=== PATIENT | male | born 1950 | race Caucasian/White ===

== ENCOUNTER 2021-02-06 12:20 | Inpatient (IN) ==
[2021-02-06 12:58] LABS: Basophils # 0.1 10*3/uL (0.0-0.2); Eosinophils # 0.2 10*3/uL (0.0-0.87); Eosinophils % 1.1 % (0.00-10.9); Hematocrit 44.9 VOL% (42.0-52.0); Hemoglobin 14.3 GM/DL (14.0-18.0); Immature Granulocytes % 1.4 %; Lymphocytes # 1.1 10*3/uL (1.4-4.0); Lymphocytes % 7.6 % (21.2-54.2); Mean Corpuscular HGB Conc 31.8 GM/DL (32-36); Mean Corpuscular Volume 87.7 FL (87-102); Mean Platelet Volume 9.5 FL (9.6-12.0); Neutrophils % 77.9 % (38.7-73.9); Platelet Count 143 T/CUMM (130-400); Red Blood Count 5.12 MC/CUMM (3.8-5.5); Red Cell Distribution Width 15.9 % (9.3-17.3); White Blood Count 14.3 T/CUMM (4-12)
[2021-02-06 13:23] LABS: Alanine Aminotransferase 26 U/L (16-61); Albumin 2.3 G/DL (3.4-5.0); Alkaline Phosphatase 120 U/L (45-117); Aspartate Amino Transferase 29 U/L (0-37); Blood Urea Nitrogen 35 MG/DL (7-18); Calcium 8.3 MG/DL (8.5-10.1); Carbon Dioxide 18 MMOL/L (21-32); Estimated Glom Filtration Rate 24 ML/MIN; Glucose 127 MG/DL (74-106); INR 1.1; Osmolality,Calculated 282.8 MOS/KG (273-304); PT Patient Result 11.6 SECS (9.8-11.9); Partial Thromboplastin Time 37.8 SECS (23.9-33.8); Potassium 5.9 MMOL/L (3.5-5.1); Sodium 137 MMOL/L (136-145); Total Protein 5.6 G/DL (5.0-7.5)
[2021-02-06 15:17] LABS: Bacteria,Urine Moderate /HPF (Few); Bilirubin,Urine Negative (Negative); Blood, Urine Negative (Negative); Glucose,Urine (UA) Negative (Negative); Hyaline Casts,Urine 4 /LPF (0-3); Ketones,Urine Negative (Negative); Mucus,Urine Occasional /LPF (Occasional); Nitrite,Urine Negative (Negative); Protein,Urine Negative; RBC,Urine 1 /HPF (0-4); Squamous Epithelial Cell,Urine Occasional /HPF (0-10); Urine Appearance CLEAR (Clear); Urine Color Yellow (Yellow); Urine Specific Gravity 1.008 (1.001-1.035); Urine Urobilinogen < 2.0 EU/DL (0.2-1.0); WBC,Urine 5 /HPF (0-6)
[2021-02-06] MEDS ORDERED: ALBUMIN 25% 12.5 GM in PREMIX 1 EACH IV PRN (15:48)
[2021-02-06] MEDS ORDERED: SODIUM CHLORIDE 0.9% 1,000 ML IV STA (15:51)
[2021-02-06] MEDS ORDERED: ALBUMIN 25% 12.5 GM/50 ML VIAL IV ONE (15:51)
[2021-02-06] MEDS ORDERED: ALBUMIN 25% 12.5 GM in PREMIX 1 EACH IV ONE (16:14)
[2021-02-06] MEDS ORDERED: SODIUM CHLORIDE 0.9% 1,000 ML IV ONE (17:49)
[2021-02-06] MEDS ORDERED: SODIUM POLYSTYRENE SULFATE 15 GM/60 ML BOTTLE PO ONE (17:49)
[2021-02-06] MEDS ORDERED: DEXTROSE 50% 25 GM/50 ML VIAL IV PRN ×3 (17:49→18:27)
[2021-02-06] MEDS ORDERED: GLUCAGON 1 MG VIAL IM PRN ×3 (17:49→18:27)
[2021-02-06 17:59] LABS: Neutrophils,Peritoneal Fluid 35 %; RBC,Peritoneal Fluid 645 T/CUMM
[2021-02-06] MEDS: cefTRIAXone 1,000 MG in SYRINGE 1 EACH IV SCH (18:19)
[2021-02-06] MEDS: metroNIDAZOLE INJ 500 MG in PREMIX 1 EACH IV SCH (18:20)
[2021-02-06] MEDS ORDERED: ALUMINUM/MAGNES/SIMETH MAX STR 30 ML UDCUP PO PRN (18:27)
[2021-02-06] MEDS ORDERED: diphenhydrAMINE CAP 25 MG CAPSULE PO PRN (18:27)
[2021-02-06] MEDS ORDERED: MORPHINE 4 MG/1 ML VIAL IV PRN (18:27)
[2021-02-06] MEDS ORDERED: ACETAMINOPHEN 325 MG TABLET PO PRN (18:27)
[2021-02-06] MEDS ORDERED: NICOTINE 21 MG/24 HR PATCH TRANSDERM PRN (18:27)
[2021-02-06] MEDS ORDERED: hydrALAZINE 20 MG/1 ML VIAL IV PRN (18:27)
[2021-02-06] MEDS ORDERED: PROMETHAZINE 25 MG TABLET PO PRN (18:27)
[2021-02-06] MEDS ORDERED: BISACODYL 5 MG TABLET PO PRN (18:27)
[2021-02-06] MEDS ORDERED: ZALEPLON 5 MG CAPSULE PO PRN (18:27)
[2021-02-06] MEDS ORDERED: guaiFENesin/DM ER 600-30 MG TABLET PO PRN (18:27)
[2021-02-06] MEDS: HEPARIN 5,000 UNIT/1 ML VIAL SUBCUT SCH (19:55)
[2021-02-06] MEDS: SODIUM CHLORIDE 0.9% 1,000 ML IV SCH (20:10)
[2021-02-06] MEDS ORDERED: ZOLPIDEM 5 MG TABLET PO SCH (21:00)
[2021-02-06] MEDS: INSULIN LISPRO 100 UNIT/ML SUBCUT SCH (21:18)
[2021-02-06] MEDS: LACTULOSE 20 GM/30 ML UDCUP PO SCH (22:11)
[2021-02-06] MEDS: ASPIRIN EC 81 MG TABLET PO SCH (22:11)
[2021-02-07] MEDS: metroNIDAZOLE INJ 500 MG in PREMIX 1 EACH IV SCH ×3 (02:07→16:44)
[2021-02-07 04:31] LABS: Basophils # 0.1 10*3/uL (0.0-0.2); Basophils % 0.9 % (0.0-0.8); Eosinophils # 0.1 10*3/uL (0.0-0.87); Eosinophils % 1.7 % (0.00-10.9); Hematocrit 38.5 VOL% (42.0-52.0); Hemoglobin 12.2 GM/DL (14.0-18.0); Immature Granulocytes % 0.7 %; Immature Granulocytes Absolute 0.05 #; Lymphocytes # 0.9 10*3/uL (1.4-4.0); Lymphocytes % 12.8 % (21.2-54.2); Mean Corpuscular HGB Conc 31.7 GM/DL (32-36); Mean Corpuscular Volume 88.3 FL (87-102); Mean Platelet Volume 9.7 FL (9.6-12.0); Monocytes % 13.5 % (1.7-12.7); Neutrophils % 70.4 % (38.7-73.9); Platelet Count 91 T/CUMM (130-400); Red Blood Count 4.36 MC/CUMM (3.8-5.5)
[2021-02-07 04:49] LABS: Hypochromasia 1+; Microcytosis 1+; Ovalocytes Few
[2021-02-07 04:50] LABS: Platelet Estimate Decreased
[2021-02-07 04:51] LABS: Albumin 2.3 G/DL (3.4-5.0); Bilirubin,Total 1.3 MG/DL (0.2-1.0); Calcium 7.8 MG/DL (8.5-10.1); Osmolality,Calculated 283.5 MOS/KG (273-304); Potassium 4.8 MMOL/L (3.5-5.1); Total Protein 5.1 G/DL (5.0-7.5)
[2021-02-07] MEDS: HEPARIN 5,000 UNIT/1 ML VIAL SUBCUT SCH (06:05)
[2021-02-07] MEDS: INSULIN LISPRO 100 UNIT/ML SUBCUT SCH ×4 (08:56→22:24)
[2021-02-07] MEDS: LACTULOSE 20 GM/30 ML UDCUP PO SCH ×4 (08:58→22:21)
[2021-02-07] MEDS ORDERED: PANTOPRAZOLE 40 MG TABLET PO SCH (09:00)
[2021-02-07] MEDS: ONDANSETRON 4 MG/2 ML VIAL IV PRN (15:47)
[2021-02-07] MEDS: SODIUM CHLORIDE 0.9% 1,000 ML IV SCH (16:45)
[2021-02-07] MEDS: ASPIRIN EC 81 MG TABLET PO SCH (22:18)
[2021-02-07] MEDS: cefTRIAXone 1,000 MG in SYRINGE 1 EACH IV SCH (22:19)
[2021-02-07] MEDS: ZALEPLON 5 MG CAPSULE PO SCH (22:19)
[2021-02-08] MEDS: metroNIDAZOLE INJ 500 MG in PREMIX 1 EACH IV SCH ×3 (01:14→16:16)
[2021-02-08 05:01] LABS: Basophils # 0.1 10*3/uL (0.0-0.2); Basophils % 1.1 % (0.0-0.8); Eosinophils # 0.1 10*3/uL (0.0-0.87); Eosinophils % 1.8 % (0.00-10.9); Hematocrit 37.5 VOL% (42.0-52.0); Immature Granulocytes % 0.8 %; Immature Granulocytes Absolute 0.05 #; Lymphocytes # 0.8 10*3/uL (1.4-4.0); Lymphocytes % 12.5 % (21.2-54.2); Mean Platelet Volume 9.7 FL (9.6-12.0); Neutrophils % 69.8 % (38.7-73.9); Platelet Count 87 T/CUMM (130-400); Red Blood Count 4.31 MC/CUMM (3.8-5.5); Red Cell Distribution Width 15.9 % (9.3-17.3); White Blood Count 6.5 T/CUMM (4-12)
[2021-02-08] MEDS: ONDANSETRON 4 MG/2 ML VIAL IV PRN ×2 (05:10→21:25)
[2021-02-08 05:20] LABS: Albumin 2.3 G/DL (3.4-5.0); Bilirubin,Direct 0.29 MG/DL (0.0-0.20); Bilirubin,Total 1.3 MG/DL (0.2-1.0); Calcium 8.2 MG/DL (8.5-10.1); Osmolality,Calculated 286.5 MOS/KG (273-304); Potassium 4.7 MMOL/L (3.5-5.1)
[2021-02-08 05:22] LABS: Hypochromasia Slight; Microcytosis 1+; Ovalocytes Slight; Platelet Estimate Decreased
[2021-02-08] MEDS ORDERED: SODIUM CHLORIDE 0.9% 1,000 ML IV SCH (07:00)
[2021-02-08] MEDS: INSULIN LISPRO 100 UNIT/ML SUBCUT SCH ×4 (07:49→21:08)
[2021-02-08] MEDS ORDERED: LACTATED RINGERS 1,000 ML IV SCH (08:00)
[2021-02-08] MEDS: SODIUM CHLORIDE 0.9% 1,000 ML IV SCH ×2 (09:24→13:31)
[2021-02-08] MEDS ORDERED: propofoL 200 MG/20 ML VIAL IV ONE (10:58)
[2021-02-08] MEDS ORDERED: LIDOCAINE 2% 5 ML VIAL ONE (10:58)
[2021-02-08] MEDS ORDERED: ETOMIDATE 20 MG/10 ML VIAL IV ONE (11:07)
[2021-02-08] MEDS: LACTULOSE 20 GM/30 ML UDCUP PO SCH ×3 (13:30→21:09)
[2021-02-08] MEDS: ASPIRIN EC 81 MG TABLET PO SCH (21:07)
[2021-02-08] MEDS: cefTRIAXone 1,000 MG in SYRINGE 1 EACH IV SCH (21:07)
[2021-02-08] MEDS: ZALEPLON 5 MG CAPSULE PO SCH (21:07)
[2021-02-08] MEDS: MIDODRINE 5 MG TABLET PO SCH (21:07)
[2021-02-09] MEDS: metroNIDAZOLE INJ 500 MG in PREMIX 1 EACH IV SCH ×2 (01:20→08:48)
[2021-02-09 05:23] LABS: Basophils # 0.1 10*3/uL (0.0-0.2); Basophils % 1.3 % (0.0-0.8); Eosinophils # 0.2 10*3/uL (0.0-0.87); Eosinophils % 2.7 % (0.00-10.9); Hematocrit 37.4 VOL% (42.0-52.0); Hemoglobin 11.9 GM/DL (14.0-18.0); Immature Granulocytes % 0.9 %; Immature Granulocytes Absolute 0.06 #; Lymphocytes # 0.9 10*3/uL (1.4-4.0); Lymphocytes % 14.5 % (21.2-54.2); Mean Corpuscular HGB Conc 31.8 GM/DL (32-36); Mean Corpuscular Volume 87.2 FL (87-102); Mean Platelet Volume 9.5 FL (9.6-12.0); Monocytes % 12.6 % (1.7-12.7); Platelet Count 88 T/CUMM (130-400); Red Blood Count 4.29 MC/CUMM (3.8-5.5); Red Cell Distribution Width 15.9 % (9.3-17.3); White Blood Count 6.3 T/CUMM (4-12)
[2021-02-09 05:41] LABS: Hypochromasia 1+; Microcytosis 1+; Platelet Estimate Decreased
[2021-02-09 06:00] LABS: Albumin 2.2 G/DL (3.4-5.0); Bilirubin,Direct 0.35 MG/DL (0.0-0.20); Bilirubin,Indirect 1.1 MG/DL (0.0-1.0); Bilirubin,Total 1.4 MG/DL (0.2-1.0); Osmolality,Calculated 287.3 MOS/KG (273-304); Potassium 4.8 MMOL/L (3.5-5.1); Total Protein 4.8 G/DL (5.0-7.5)
[2021-02-09] MEDS: INSULIN LISPRO 100 UNIT/ML SUBCUT SCH ×2 (08:48→13:21)
[2021-02-09] MEDS: MIDODRINE 5 MG TABLET PO SCH ×2 (08:49→14:19)
[2021-02-09] MEDS: LACTULOSE 20 GM/30 ML UDCUP PO SCH ×2 (08:49→14:20)
[2021-02-09 15:38] VITALS: BP 96/67
== END 2021-02-09 15:45 | disposition home health service (06) | DRG 433 ==
LOC: N.ED 12:20 → N.5E 19:08
PROVIDERS: ADMIT Internal Medicine; ATTEND Internal Medicine

== ENCOUNTER 2021-02-25 10:42 | Inpatient (IN) ==
[2021-02-25] MEDS ORDERED: DEXTROSE 50% 25 GM/50 ML VIAL IV PRN (12:41)
[2021-02-25] MEDS ORDERED: GLUCAGON 1 MG VIAL IM PRN (12:41)
[2021-02-25] MEDS ORDERED: SODIUM CHLORIDE 0.9% 1,000 ML IV SCH (13:00)
[2021-02-25 13:01] LABS: ABG HCO3 15.9 MMOL/L (20-26); ABG Oxygen Saturation 98.2 % (95-100); ABG PCO2 23.4 MM HG (35-48); ABG PH 7.353 (7.35-7.45); ABG TCO2 11.4 MMOL/L (23-27); Allen Test Positive; Pt O2 Delivery Device Room Air
[2021-02-25 13:12] LABS: INR 1.1; PT Patient Result 11.8 SECS (9.8-11.9)
[2021-02-25] MEDS: HEPARIN 5,000 UNIT/1 ML VIAL SUBCUT SCH (13:13)
[2021-02-25] MEDS: SODIUM POLYSTYRENE SULFATE 15 GM/60 ML BOTTLE PO SCH ×2 (13:13→18:30)
[2021-02-25 13:43] LABS: Lactic Acid 3.4 MMOL/L (0.4-2.0)
[2021-02-25 14:13] LABS: Calcium 9.2 MG/DL (8.5-10.1); Osmolality,Calculated 298.7 MOS/KG (273-304); Uric Acid 9.6 MG/DL (3.5-7.2)
[2021-02-25 14:19] LABS: Potassium 7.1 MMOL/L (3.5-5.1)
[2021-02-25] MEDS: LACTULOSE 20 GM/30 ML UDCUP PO SCH ×2 (14:52→20:22)
[2021-02-25] MEDS: MIDODRINE 5 MG TABLET PO SCH ×2 (14:53→20:22)
[2021-02-25] MEDS: SODIUM ZIRCONIUM CYCLOSILICATE 10 GM PACK PO SCH ×2 (14:53→20:22)
[2021-02-25] MEDS ORDERED: SODIUM BICARBONATE 50 MEQ/50 ML VIAL IV ONE (15:17)
[2021-02-25] MEDS: SODIUM BICARB INJ 150 MEQ in DEXTROSE 5% 850 ML IV SCH ×2 (15:30→23:45)
[2021-02-25] MEDS: INSULIN LISPRO 100 UNIT/ML SUBCUT SCH ×2 (17:41→20:22)
[2021-02-25 17:46] LABS: Hepatitis B Core IgM Quant < 0.05 Index; Hepatitis B Surface Ag Quant < 0.10 Index; Hepatitis B Surface Ag Result Non-Reactive (NonReactive); Hepatitis C Virus Ab Quant 0.06 Index; Hepatitis C Virus Ab Result Non-Reactive (NonReactive)
[2021-02-25 18:06] LABS: Osmolality,Calculated 309.1 MOS/KG (273-304)
[2021-02-25] MEDS ORDERED: HEPARIN 10,000 UNIT/10 ML VIAL IV SCH (18:15)
[2021-02-25 18:16] LABS: Potassium 6.1 MMOL/L (3.5-5.1)
[2021-02-25 21:58] LABS: Calcium 7.8 MG/DL (8.5-10.1); Osmolality,Calculated 300.3 MOS/KG (273-304); Potassium 4.8 MMOL/L (3.5-5.1)
[2021-02-26] MEDS: HEPARIN 5,000 UNIT/1 ML VIAL SUBCUT SCH ×2 (01:42→12:02)
[2021-02-26 05:11] LABS: Basophils # 0.1 10*3/uL (0.0-0.2); Basophils % 0.7 % (0.0-0.8); Eosinophils # 0.1 10*3/uL (0.0-0.87); Eosinophils % 1.8 % (0.00-10.9); Hematocrit 33.7 VOL% (42.0-52.0); Hemoglobin 10.9 GM/DL (14.0-18.0); Immature Granulocytes % 0.7 %; Immature Granulocytes Absolute 0.05 #; Lymphocytes # 0.8 10*3/uL (1.4-4.0); Lymphocytes % 10.2 % (21.2-54.2); Mean Corpuscular HGB Conc 32.3 GM/DL (32-36); Mean Corpuscular Volume 87.8 FL (87-102); Mean Platelet Volume 10.1 FL (9.6-12.0); Monocytes % 11.7 % (1.7-12.7); Neutrophils % 74.9 % (38.7-73.9); Platelet Count 89 T/CUMM (130-400); Red Blood Count 3.84 MC/CUMM (3.8-5.5); Red Cell Distribution Width 17.4 % (9.3-17.3); White Blood Count 7.7 T/CUMM (4-12)
[2021-02-26 05:28] LABS: Albumin 2.1 G/DL (3.4-5.0); Bilirubin,Total 1.6 MG/DL (0.2-1.0); Calcium 7.8 MG/DL (8.5-10.1); Osmolality,Calculated 298.4 MOS/KG (273-304); Potassium 5.1 MMOL/L (3.5-5.1); Total Protein 4.4 G/DL (6.4-8.2); Uric Acid 7.1 MG/DL (3.5-7.2)
[2021-02-26 05:31] LABS: Hypochromasia Slight; Microcytosis 1+; Platelet Estimate Decreased
[2021-02-26 05:32] LABS: Ovalocytes Few; Polychromasia Slight; Tear Drop Cells Few
[2021-02-26] MEDS: SODIUM BICARB INJ 150 MEQ in DEXTROSE 5% 850 ML IV SCH (07:35)
[2021-02-26] MEDS: INSULIN LISPRO 100 UNIT/ML SUBCUT SCH ×4 (08:01→20:01)
[2021-02-26] MEDS: glipiZIDE 10 MG TABLET PO SCH ×2 (08:19→20:11)
[2021-02-26] MEDS: PANTOPRAZOLE 40 MG TABLET PO SCH (08:20)
[2021-02-26] MEDS: LACTULOSE 20 GM/30 ML UDCUP PO SCH ×2 (08:20→20:11)
[2021-02-26] MEDS: MIDODRINE 5 MG TABLET PO SCH ×3 (08:20→20:11)
[2021-02-26] MEDS ORDERED: SODIUM CHLORIDE 0.9% 1,000 ML IV SCH (08:30)
[2021-02-26] MEDS: ASPIRIN EC 81 MG TABLET PO SCH (20:11)
[2021-02-27 04:36] LABS: Basophils # 0.1 10*3/uL (0.0-0.2); Basophils % 0.5 % (0.0-0.8); Eosinophils # 0.3 10*3/uL (0.0-0.87); Eosinophils % 3.4 % (0.00-10.9); Hematocrit 34.1 VOL% (42.0-52.0); Immature Granulocytes % 0.9 %; Immature Granulocytes Absolute 0.08 #; Lymphocytes # 1.2 10*3/uL (1.4-4.0); Mean Corpuscular HGB Conc 32.3 GM/DL (32-36); Mean Corpuscular Volume 88.1 FL (87-102); Monocytes % 12.4 % (1.7-12.7); Neutrophils % 69.8 % (38.7-73.9); Platelet Count 88 T/CUMM (130-400); Red Blood Count 3.87 MC/CUMM (3.8-5.5); Red Cell Distribution Width 17.7 % (9.3-17.3); White Blood Count 9.3 T/CUMM (4-12)
[2021-02-27 04:51] LABS: Bilirubin,Total 1.2 MG/DL (0.2-1.0); Calcium 7.6 MG/DL (8.5-10.1); Osmolality,Calculated 296.3 MOS/KG (273-304); Potassium 5.3 MMOL/L (3.5-5.1); Total Protein 4.5 G/DL (6.4-8.2)
[2021-02-27 05:22] LABS: Hypochromasia Slight; Platelet Estimate Decreased
[2021-02-27] MEDS: INSULIN LISPRO 100 UNIT/ML SUBCUT SCH ×4 (07:19→21:41)
[2021-02-27] MEDS: PANTOPRAZOLE 40 MG TABLET PO SCH (08:45)
[2021-02-27] MEDS: MIDODRINE 5 MG TABLET PO SCH ×3 (08:45→20:17)
[2021-02-27] MEDS: LACTULOSE 20 GM/30 ML UDCUP PO SCH ×2 (08:45→20:18)
[2021-02-27] MEDS: HEPARIN 5,000 UNIT/1 ML VIAL SUBCUT SCH ×2 (08:47→20:18)
[2021-02-27] MEDS: ASPIRIN EC 81 MG TABLET PO SCH (20:17)
[2021-02-27] MEDS: MELATONIN 3 MG TABLET PO PRN (21:00)
[2021-02-28 04:30] LABS: Basophils # 0.1 10*3/uL (0.0-0.2); Basophils % 0.6 % (0.0-0.8); Eosinophils # 0.4 10*3/uL (0.0-0.87); Eosinophils % 3.5 % (0.00-10.9); Hematocrit 34.8 VOL% (42.0-52.0); Hemoglobin 11.1 GM/DL (14.0-18.0); Immature Granulocytes % 1.1 %; Immature Granulocytes Absolute 0.11 #; Lymphocytes # 1.3 10*3/uL (1.4-4.0); Lymphocytes % 12.6 % (21.2-54.2); Mean Corpuscular HGB Conc 31.9 GM/DL (32-36); Mean Corpuscular Volume 89.2 FL (87-102); Mean Platelet Volume 9.9 FL (9.6-12.0); Monocytes % 13.1 % (1.7-12.7); Neutrophils % 69.1 % (38.7-73.9); Platelet Count 87 T/CUMM (130-400); Red Cell Distribution Width 17.7 % (9.3-17.3); White Blood Count 9.9 T/CUMM (4-12)
[2021-02-28 04:44] LABS: Albumin 2.1 G/DL (3.4-5.0); Bilirubin,Total 1.4 MG/DL (0.2-1.0); Calcium 7.7 MG/DL (8.5-10.1); Osmolality,Calculated 284.5 MOS/KG (273-304); Total Protein 4.4 G/DL (6.4-8.2)
[2021-02-28 05:07] LABS: Platelet Estimate Decreased
[2021-02-28] MEDS: INSULIN LISPRO 100 UNIT/ML SUBCUT SCH ×4 (07:15→20:12)
[2021-02-28] MEDS: PANTOPRAZOLE 40 MG TABLET PO SCH (08:28)
[2021-02-28] MEDS: MIDODRINE 5 MG TABLET PO SCH ×3 (08:28→20:04)
[2021-02-28] MEDS: LACTULOSE 20 GM/30 ML UDCUP PO SCH ×2 (08:28→20:04)
[2021-02-28] MEDS: HEPARIN 5,000 UNIT/1 ML VIAL SUBCUT SCH (08:35)
[2021-02-28] MEDS: ONDANSETRON 4 MG/2 ML VIAL IV PRN (11:20)
[2021-02-28] MEDS: ASPIRIN EC 81 MG TABLET PO SCH (20:04)
[2021-02-28] MEDS: MELATONIN 3 MG TABLET PO PRN (20:04)
[2021-03-01 04:11] LABS: Basophils # 0.1 10*3/uL (0.0-0.2); Basophils % 0.6 % (0.0-0.8); Eosinophils # 0.4 10*3/uL (0.0-0.87); Eosinophils % 3.7 % (0.00-10.9); Hematocrit 34.8 VOL% (42.0-52.0); Immature Granulocytes % 0.9 %; Immature Granulocytes Absolute 0.09 #; Lymphocytes # 1.3 10*3/uL (1.4-4.0); Lymphocytes % 13.4 % (21.2-54.2); Mean Corpuscular HGB Conc 31.6 GM/DL (32-36); Mean Corpuscular Volume 89.7 FL (87-102); Mean Platelet Volume 10.3 FL (9.6-12.0); Monocytes % 12.9 % (1.7-12.7); Neutrophils % 68.5 % (38.7-73.9); Platelet Count 88 T/CUMM (130-400); Red Blood Count 3.88 MC/CUMM (3.8-5.5); Red Cell Distribution Width 17.8 % (9.3-17.3); White Blood Count 9.8 T/CUMM (4-12)
[2021-03-01 04:27] LABS: Albumin 2.1 G/DL (3.4-5.0); Bilirubin,Total 1.2 MG/DL (0.2-1.0); Calcium 7.9 MG/DL (8.5-10.1); Potassium 4.9 MMOL/L (3.5-5.1); Total Protein 4.4 G/DL (6.4-8.2)
[2021-03-01 04:28] LABS: Hypochromasia Slight; Ovalocytes Slight; Platelet Estimate Decreased
[2021-03-01] MEDS: INSULIN LISPRO 100 UNIT/ML SUBCUT SCH ×4 (07:32→21:30)
[2021-03-01] MEDS: LACTULOSE 20 GM/30 ML UDCUP PO SCH ×2 (08:55→21:30)
[2021-03-01] MEDS: MIDODRINE 5 MG TABLET PO SCH ×3 (08:55→21:30)
[2021-03-01] MEDS: PANTOPRAZOLE 40 MG TABLET PO SCH (08:56)
[2021-03-01] MEDS ORDERED: DIAZEPAM 5 MG TABLET PO ONE (10:00)
[2021-03-01] MEDS ORDERED: LIDOCAINE 1%/EPI INJ 20 ML VIAL ONE (14:19)
[2021-03-01] MEDS: HEPARIN 5,000 UNIT/1 ML VIAL SUBCUT SCH (20:16)
[2021-03-01] MEDS: ASPIRIN EC 81 MG TABLET PO SCH (21:30)
[2021-03-01] MEDS: MELATONIN 3 MG TABLET PO PRN (21:30)
[2021-03-01] MEDS: ONDANSETRON 4 MG/2 ML VIAL IV PRN (22:06)
[2021-03-02 05:02] LABS: Basophils # 0.1 10*3/uL (0.0-0.2); Basophils % 0.7 % (0.0-0.8); Eosinophils # 0.4 10*3/uL (0.0-0.87); Eosinophils % 3.5 % (0.00-10.9); Hematocrit 36.8 VOL% (42.0-52.0); Hemoglobin 11.8 GM/DL (14.0-18.0); Immature Granulocytes % 0.9 %; Immature Granulocytes Absolute 0.11 #; Lymphocytes # 1.2 10*3/uL (1.4-4.0); Lymphocytes % 9.7 % (21.2-54.2); Mean Corpuscular HGB Conc 32.1 GM/DL (32-36); Mean Corpuscular Volume 88.7 FL (87-102); Mean Platelet Volume 9.7 FL (9.6-12.0); Monocytes % 13.7 % (1.7-12.7); Neutrophils % 71.5 % (38.7-73.9); Platelet Count 105 T/CUMM (130-400); Red Blood Count 4.15 MC/CUMM (3.8-5.5); Red Cell Distribution Width 17.8 % (9.3-17.3); White Blood Count 12.1 T/CUMM (4-12)
[2021-03-02 05:38] LABS: Calcium 8.4 MG/DL (8.5-10.1); Osmolality,Calculated 275.4 MOS/KG (273-304)
[2021-03-02] MEDS: INSULIN LISPRO 100 UNIT/ML SUBCUT SCH ×4 (07:44→20:48)
[2021-03-02] MEDS: HEPARIN 5,000 UNIT/1 ML VIAL SUBCUT SCH ×2 (08:35→20:48)
[2021-03-02] MEDS: PANTOPRAZOLE 40 MG TABLET PO SCH (08:36)
[2021-03-02] MEDS: LACTULOSE 20 GM/30 ML UDCUP PO SCH ×2 (08:36→20:48)
[2021-03-02] MEDS: MIDODRINE 5 MG TABLET PO SCH ×3 (08:36→20:47)
[2021-03-02] MEDS: ASPIRIN EC 81 MG TABLET PO SCH (20:47)
[2021-03-03] MEDS: INSULIN LISPRO 100 UNIT/ML SUBCUT SCH ×4 (07:49→21:30)
[2021-03-03] MEDS: HEPARIN 5,000 UNIT/1 ML VIAL SUBCUT SCH ×2 (08:28→21:04)
[2021-03-03] MEDS: PANTOPRAZOLE 40 MG TABLET PO SCH (08:28)
[2021-03-03] MEDS: LACTULOSE 20 GM/30 ML UDCUP PO SCH ×2 (08:28→20:32)
[2021-03-03] MEDS: MIDODRINE 5 MG TABLET PO SCH ×3 (08:28→21:05)
[2021-03-03 08:43] LABS: Basophils # 0.1 10*3/uL (0.0-0.2); Basophils % 0.6 % (0.0-0.8); Eosinophils # 0.4 10*3/uL (0.0-0.87); Eosinophils % 3.6 % (0.00-10.9); Hematocrit 35.9 VOL% (42.0-52.0); Hemoglobin 11.5 GM/DL (14.0-18.0); Immature Granulocytes % 0.9 %; Lymphocytes # 1.3 10*3/uL (1.4-4.0); Lymphocytes % 11.8 % (21.2-54.2); Mean Corpuscular Volume 89.5 FL (87-102); Mean Platelet Volume 10.3 FL (9.6-12.0); Monocytes % 14.3 % (1.7-12.7); Neutrophils % 68.8 % (38.7-73.9); Platelet Count 90 T/CUMM (130-400); Red Blood Count 4.01 MC/CUMM (3.8-5.5); Red Cell Distribution Width 18.2 % (9.3-17.3); White Blood Count 10.7 T/CUMM (4-12)
[2021-03-03 08:56] LABS: Calcium 8.2 MG/DL (8.5-10.1); Potassium 4.6 MMOL/L (3.5-5.1)
[2021-03-03 09:01] LABS: Hypochromasia 1+; Microcytosis 1+; Ovalocytes Few
[2021-03-03 09:02] LABS: Platelet Estimate Decreased
[2021-03-03] MEDS ORDERED: BUPIVACAINE MPF 0.25% 30 ML VIAL ONE (11:33)
[2021-03-03] MEDS ORDERED: LIDOCAINE 1%/EPI INJ 20 ML VIAL ONE (11:33)
[2021-03-03] MEDS ORDERED: DEXMEDETOMIDINE 200 MCG/2 ML VIAL ONE (11:41)
[2021-03-03] MEDS ORDERED: KETAMINE 500 MG/10 ML VIAL ONE (11:41)
[2021-03-03] MEDS ORDERED: SODIUM CHLORIDE 0.9% 250 ML IV SCH (12:00)
[2021-03-03] MEDS ORDERED: CALCIUM CHLORIDE 1,000 MG/10 ML VIAL IV ONE (12:36)
[2021-03-03] MEDS ORDERED: PHENYLEPHRINE 1 MG/10 ML SYRINGE IV ONE (12:36)
[2021-03-03] MEDS ORDERED: LIDOCAINE 2% 5 ML VIAL ONE (12:36)
[2021-03-03] MEDS ORDERED: ePHEDrine 50 MG/ML VIAL ONE (12:42)
[2021-03-03] MEDS ORDERED: PHENYLEPHRINE DRIP 40 MG/250 ML PREMIX IV ONE (13:26)
[2021-03-03] MEDS ORDERED: SODIUM CHLORIDE 0.9% 500 ML IV ONE (13:30)
[2021-03-03] MEDS ORDERED: PHENYLEPHRINE DRIP 40 MG/250 ML PREMIX IV PRN (13:32)
[2021-03-03] MEDS ORDERED: NOREPINEPHRINE 8 MG in SODIUM CHLORIDE 0.9% 242 ML IV PRN (14:05)
[2021-03-03] MEDS ORDERED: NOREPINEPHRINE 4 MG/4 ML VIAL IV ONE (14:19)
[2021-03-03 15:48] VITALS: BP 112/66
[2021-03-03] MEDS: ASPIRIN EC 81 MG TABLET PO SCH (21:05)
[2021-03-04 04:24] LABS: Basophils # 0.1 10*3/uL (0.0-0.2); Basophils % 0.7 % (0.0-0.8); Eosinophils # 0.7 10*3/uL (0.0-0.87); Eosinophils % 5.3 % (0.00-10.9); Hematocrit 39.9 VOL% (42.0-52.0); Hemoglobin 12.6 GM/DL (14.0-18.0); Immature Granulocytes % 0.9 %; Immature Granulocytes Absolute 0.12 #; Lymphocytes # 1.2 10*3/uL (1.4-4.0); Lymphocytes % 8.7 % (21.2-54.2); Mean Corpuscular HGB Conc 31.6 GM/DL (32-36); Mean Corpuscular Volume 89.9 FL (87-102); Mean Platelet Volume 9.7 FL (9.6-12.0); Monocytes % 12.1 % (1.7-12.7); Neutrophils % 72.3 % (38.7-73.9); Red Blood Count 4.44 MC/CUMM (3.8-5.5); Red Cell Distribution Width 17.8 % (9.3-17.3); White Blood Count 13.3 T/CUMM (4-12)
[2021-03-04 04:26] LABS: Platelet Count 99 T/CUMM (130-400)
[2021-03-04 04:38] LABS: Calcium 8.4 MG/DL (8.5-10.1); Osmolality,Calculated 274.4 MOS/KG (273-304); Potassium 5.4 MMOL/L (3.5-5.1)
[2021-03-04 04:54] LABS: Platelet Estimate Decreased
[2021-03-04 04:55] LABS: Hypochromasia Slight; Microcytosis Slight
[2021-03-04] MEDS: INSULIN LISPRO 100 UNIT/ML SUBCUT SCH ×2 (07:34→11:47)
[2021-03-04] MEDS: LACTULOSE 20 GM/30 ML UDCUP PO SCH ×2 (08:08→08:24)
[2021-03-04] MEDS: HEPARIN 5,000 UNIT/1 ML VIAL SUBCUT SCH (08:09)
[2021-03-04] MEDS: MIDODRINE 5 MG TABLET PO SCH (08:09)
[2021-03-04] MEDS: PANTOPRAZOLE 40 MG TABLET PO SCH (08:09)
[2021-03-04] MEDS ORDERED: ALBUMIN 25% 12.5 GM in PREMIX 1 EACH IV PRN (09:00)
[2021-03-09] MEDS ORDERED: ALBUMIN 25% 12.5 GM in PREMIX 1 EACH IV PRN (11:40)
== END 2021-03-04 13:05 | disposition home or self-care (01) | DRG 674 ==
LOC: N.CC 12:12 → SUATTDRO 12:12 → N.5E 03-01 15:37 → N.CC 03-03 14:41
PROVIDERS: ADMIT Family Medicine; ATTEND Hospitalist